=== PATIENT | female | born 1960 | race Asian ===

== ENCOUNTER 2020-09-17 15:25 | Outpatient (CLI) | payer BC ==
--- NOTE | 2020-09-17 17:38 | XRAY Report ---
PROCEDURE: Ankle 3 View RT INDICATIONS: R ANKLE PX TECHNIQUE: 3 views of the ankle were acquired. COMPARISON: None available at time of interpretation. FINDINGS: Bones: No fractures or dislocations. Severe tibiotalar joint space narrowing with [id number] conta ct, subchondral sclerosis and cystic change. Bony deformities of the mid to distal fibular and tibial shafts related to prior fractures. Soft tissues: No tibiotalar joint effusion. Achilles tendon roxann ears normal. IMPRESSION: 1. Severe tibiotalar joint degeneration. 2. Healed fracture deformities of the mid to distal tibial fibular shaft. Reviewed by: RAYSHAWN Mancini on 09/17/2020 5:37 PM PDT Approved by: Sonja Browning MD on 09/17/2020 5:37 PM PDT Station ID: [id number]
== END 2020-09-17 23:59 | disposition home or self-care (01) ==
LOC: DI.N 15:25
PROVIDERS: ATTEND Family Medicine
DX: M19.071 Primary osteoarthritis, right ankle and foot (principal); M21.6X1 Other acquired deformities of right foot